=== PATIENT | female | born 1955 | race African-American/Black ===

== ENCOUNTER 2021-08-18 07:52 | Emergency (ER) | payer OTHER ==
[2021-08-18 07:59] VITALS: BP 164/96; PULSE 79; TEMP 99.5; BMI 30.7
[2021-08-18] MEDS ORDERED: ACETAMINOPHEN 500 MG TABLET (FP) PO ONE (08:03)
== END 2021-08-18 09:37 | disposition home or self-care (01) ==
LOC: FER 07:52
DX: S09.90XA Unspecified injury of head, initial encounter (principal); W07.XXXA Fall from chair, initial encounter
CPT/HCPCS: 70450-TC; 99284-25